=== PATIENT | female | born 1975 | race Caucasian/White ===

== ENCOUNTER 2019-03-15 16:00 | Emergency (ER) | payer MEDICARE, BC, SELFPAY ==
[2019-03-15 16:01] VITALS: BP 173/73; PULSE 92; RESP 20; TEMP 36.8; O2SAT 100
[2019-03-15] MEDS: HYDROmorphone 2 MG/ML VIAL 1 MG IM (16:28)
--- NOTE | 2019-03-15 16:39 | DI.RAD_ITS ---
EXAM: XR ANKLE RT COMPLETE INDICATION: pain, injury. COMPARISON: No exams were available for comparison TECHNIQUE: 2D digital imaging was performed. FINDINGS: There is a fracture seen extending obliquely through the distal fibula. No distal tibial fracture or talar dome defect is seen. There is no evidence of ankle mortise widening. A heel spurring and vas cular calcifications are noted. IMPRESSION: Minimally displaced fracture of the distal fibula.
--- NOTE | 2019-03-15 16:41 | DI.RAD_ITS ---
EXAM: XR TIB/FIB RT INDICATION: pain, injury. COMPARISON: No exams were available for comparison TECHNIQUE: 2D digital imaging was performed. FINDINGS: There is a fracture seen through the distal fibula which is not significantly displaced. No addition al fractures are seen more proximally in the tibia and fibula. The knee is suboptimally profiled on the lateral view. Vascular calcifications are seen. IMPRESSION: Distal fibular fracture.
--- NOTE | 2019-03-15 16:42 | DI.RAD_ITS ---
EXAM: XR FOOT RT COMPLETE INDICATION: pain, injury. COMPARISON: No exams were available for comparison TECHNIQUE: 2D digital imaging was performed. FINDINGS: There is an oblique fracture seen through the distal fibula which is not significantly displaced. No additional fractures are seen in the foot. Vascular calcifications, heel spurs and mild degenerativ e changes are noted. IMPRESSION: Distal fibular fracture.
--- NOTE | 2019-03-15 16:44 | DI.RAD_ITS ---
EXAM: XR KNEE RT 4V AP,LAT,DEMAR,PAT INDICATION: pain, fall. COMPARISON: No exams were available for comparison TECHNIQUE: 2D digital imaging was performed. FINDINGS: No fracture or joint effusion is seen. There no significant degenerative changes. Vascular calcific ations are incidentally noted. IMPRESSION: No acute abnormality.
--- NOTE | 2019-03-15 17:16 | DI.VRAD_ITS ---
PROCEDURE INFORMATION: Exam: XR Right Ankle Exam date and time: 03/15/2019 4:40 PM Age: 44 years old Clinical indication: Pain; Ankle; Right TECHNIQUE: Imaging protocol: XR Right ankle. Views: 3 or more views. COMPARISON: No relevant prior studies available. FINDINGS: Bones/joints: The oblique fracture distal right fibula. Plantar calcaneal spur. Normal bone density. Soft tissues: Soft tissue swelling of the ankle. Soft tissue swelling. Vasculature: Vascular calcification. IMPRESSION: Fracture distal fibula. Dictated and Authenticated by: Sri Green MD. Ordering:LISA Oneil MD
--- NOTE | 2019-03-15 17:17 | DI.VRAD_ITS ---
PROCEDURE INFORMATION: Exam: XR Right Foot Complete Exam date and time: 03/15/2019 4:43 PM Age: 44 years old Clinical indication: Pain; Ankle; Right TECHNIQUE: Imaging protocol: XR Right foot. Views: 3 or more views. COMPARISON: CR XR ANKLE RT COMPLETE 15/03/2019 16:39 FINDINGS: Bones/joints: Plantar calcaneal spur. Fracture distal fibula. Soft tissues: Soft tissue swelling of the foot and ankle. Vasculature: Vascular calcification. IMPRESSION: Fracture distal fibula. Dictated and Authenticated by: Sri Green MD. Ordering:LISA Oneil MD
--- NOTE | 2019-03-15 17:18 | DI.VRAD_ITS ---
PROCEDURE INFORMATION: Exam: XR Right Tibia and Fibula Exam date and time: 03/15/2019 4:43 PM Age: 44 years old Clinical indication: Pain; Ankle; Right TECHNIQUE: Imaging protocol: XR Right tibia and fibula. Views: 2 views. COMPARISON: No relevant prior studies available. FINDINGS: Bones/joints: Normal bone mineralization. Distal fibula fracture. Soft tissues: Soft tissue swelling of the ankle. Vasculature: Vascular calcification. IMPRESSION: Distal fibula fracture. Atherosclerotic disease. Dictated and Authenticated by: Sri Green MD. Ordering:LISA Oneil MD
--- NOTE | 2019-03-15 17:21 | DI.VRAD_ITS ---
PROCEDURE INFORMATION: Exam: XR Right Knee Exam date and time: 03/15/2019 4:48 PM Age: 44 years old Clinical indication: Pain; Ankle; Right TECHNIQUE: Imaging protocol: XR Right knee. Views: 4 or more views. COMPARISON: CR XR TIB/FIB RT 15/03/2019 16:41 FINDINGS: Bones/joints: Normal bone mineralization. No fracture or dislocation. Soft tissues: Unremarkable. Vasculature: Vascular calcification. IMPRESSION: No evidence for acute bony injury. If clinical symptoms persist recommend followup film in 7-10 days. Dictated and Authenticated by: Sri Green MD. Ordering:LISA Oneil MD
--- NOTE | 2019-03-15 21:25 | W.ED.GENAD ---
Discharge Plan Disposition Patient Disposition: HOME Condition: Good Discharge Details Chief Complaint: Orthopedic Clinical Impression: Fibula fracture Primary Care Provider: Matty Ridley ED Provider: Clarice Bills Discharge Instructions Instructions: Leg Fracture (ED) Additional Instructions: Rest. Activities as tolerated. Do not bear weight on your leg, keep splint dry, clean and intact, use crutches. Elevate injury to prevent swelling. Ice to the area of discomfort for 15 min. 3-5 times daily. Tylenol every 6 hours for soreness if needed over the counter for comfort. Followup with orthopedic doctor as discussed Tuesday, call tomorrow for appointment. Return for any worsening or concerns sooner if needed. Referrals: Gilbert Rodriguez MD [ [facility] STAFF PHYSICIAN] - Discharge Data Discharge Date/Time-TO BE ENTERED AT DEPARTURE: 03/15/19 18:35 Medical Decision Making 44-year-old patient presenting for a right knee and ankle injury after slipping on the ice. Patient denies any other focal concerns. Patient has a benign exam otherwise. Patient has notable right knee pain, ramos pain and ankle pain both medially and laterally noted on exam. No obvious deformity present although mild swelling is present in the ankle. Distal neurovascularly intact. X-rays obtained. Patient did receive fentanyl in route via EMS yet continues to complain of severe pain. Additional dose of Dilaudid 1 mg IM was provided. Patient does have a complicated medical history specifically she is a dialysis patient with a cardiac history. She has a fistula in place in left arm. She receives dialysis Tuesday, Tuesday, Tuesday, Tuesday. Patient denies any specific medical concerns or complaints at this time only complaining of trip and fall with associated knee and ankle pain. No open wounds noted. X-rays obtained which reveal a distal fibula fracture. Spoke with orthopedics regarding patient's fracture who recommends a posterior splint, nonweightbearing until able to do stress views in the office on Tuesday. Patient has her own crutches. Posterior splint placed. Given patient's medical history recommended Tylenol for her pain management which she agrees with. Khadar encouraged. The patient was stable and requested discharge. Prior to discharge, my usual and customary return precautions were reviewed with the patient - this included follow-up instructions and reasons to return to the Emergency Department if conditions worsens, does not improve as expected, or other new concerns arise. HPI General Date/Time Provider Initiated Documentation: 03/15/19 16:05. HPI Narrative: 44-year-old patient with complicated medical history presents after slipping on the ice outside and injuring her knee and right ankle. Patient reports she slipped, knee folded onto her and she felt a crack in her ankle. Patient primarily complaining of right ankle pain at this time. Patient reports no associated numbness, tingling or weakness, difficulty ambulating due to pain. Patient denies striking head neck or back. Patient denies any other sites of pain or concerns at this time. No open wounds. Related Data Allergies Allergy/AdvReac Type Severity Reaction Status Date / Time lisinopril Allergy Intermediate Nausea Unverified 03/15/19 16:10 General Stated Complaint: Orthopedic INDIRA: 2 Review of Systems All systems reviewed & are unremarkable except as noted in HPI and below ENT Ears, Nose, Mouth, and Throat: Denies neck pain Musculoskeletal Musculoskeletal: Denies back pain, Denies deformity, Reports joint swelling, Reports limited range of motion, Denies neck pain, Denies numbness and Denies tingling Integumentary/Breasts Skin/Breast: Denies wounds Neurologic Neurologic: Denies numbness and Denies tingling [facility] Social History Smoking/Tobacco Use Status: Never Alcohol Intake: never Drug use: Never Substance use type: does not use Do you feel safe at home: Yes Do you feel safe in your relationship?: Yes Exam Narrative Exam Narrative: CONST: Healthy appearing patient, in no acute distress. Well hydrated. Alert and oriented. NECK: Normal visual inspection. FROM. Trachea midline. No Midline tenderness. CHEST: Normal insepection of the chest. No pain with palpation of chest RESP: Normal respiratory effort. Speaking full sentences. No cough. No audible wheezing. No retractions. Presents clear, full and equal bilaterally. CARDIO: No JVD. No murmurs, regular rate and rhythm MUSCULOSKELETAL: No obvious upper extremity injury. Right leg with straight leg raise intact, no femur pain with palpation, right knee pain with palpation noted anteriorly, mild ramos pain with palpation. Moderate medial and lateral malleolus tenderness of the ankle. Mild dorsal foot pain with palpation. Pulses intact. No open wounds. Sensation intact. No notable abnormalities to the left leg. SKIN: Normal. Dry. No rashes. NEURO: Alert and awake. Speech clear. Course Vital Signs Vital signs: Vital Signs Temperature 36.8 C 03/15/19 16:01 Pulse 92 H 03/15/19 16:01 Respiratory Rate 20 03/15/19 16:01 Blood Pressure 173/73 H 03/15/19 16:01 Pulse Oximetry 100 03/15/19 16:01 Temperature 36.8 C 03/15/19 16:01 Temperature Source Skin 03/15/19 16:01 Pulse 92 H 03/15/19 16:01 Respiratory Rate 03/15/19 16:01 Respiratory Effort Non-Labored 03/15/19 16:08 Blood Pressure 173/73 H 03/15/19 16:01 Pulse Oximetry 100 03/15/19 16:01 Oxygen Delivery Method Room Air 03/15/19 16:01 Oxygen Flow Rate 0 03/15/19 16:01 Pain Level 4 03/15/19 18:45 Procedures Orthopedic Splinting/Casting Injury #1: Side: right Lower Extremity Injury Location: ankle Lower Extremity Immobilizer: posterior splint
== END 2019-03-15 18:35 | disposition home or self-care (01) ==
LOC: ER 19:26
PROVIDERS: Emergency Provider Physician Assistant; PCP Nurse Practitioner
DX: M79.604 Pain in right leg (principal); M25.561 Pain in right knee; S82.431A Displaced oblique fracture of shaft of right fibula, initial encounter for closed fracture; W00.0XXA Fall on same level due to ice and snow, initial encounter; N18.6 End stage renal disease; Z99.2 Dependence on renal dialysis
CPT/HCPCS: 27786; 96372; 99284; 73564; 73590; 73610; 73630; 99282

== ENCOUNTER 2019-03-20 10:52 | Outpatient (CLI) | payer MEDICARE, BC, SELFPAY ==
--- NOTE | 2019-03-20 11:01 | DI.RAD_ITS ---
EXAM: XR ANKLE RT 2V CLINICAL HISTORY: f/u of right distal fibula fracture TECHNIQUE: COMPARISON: XR ANKLE RT COMPLETE from 03/15/2019 FINDINGS: Single view was obtained and shows previously noted fracture of distal fibula with no gross interval change in alignment of the fracture fragments comparison with examination of March 15. This was a stress view and there is question of slightly increased widening of the tibiofibular joint in comparison with the previous exam which was obtained without stress. IMPRESSION:
== END 2019-03-20 11:12 ==
PROVIDERS: PCP Nurse Practitioner; Referring Provider Nurse Practitioner; Visit Provider Student in an Organized Health Care Education/Training Program
DX: S82.831A Other fracture of upper and lower end of right fibula, initial encounter for closed fracture; W00.0XXA Fall on same level due to ice and snow, initial encounter; E11.22 Type 2 diabetes mellitus with diabetic chronic kidney disease; N18.6 End stage renal disease; Z99.2 Dependence on renal dialysis; I11.0 Hypertensive heart disease with heart failure; I50.9 Heart failure, unspecified
CPT/HCPCS: 99203; 99214; L4361; 73600

== ENCOUNTER 2019-04-18 12:00 | Outpatient (CLI) | payer MEDICARE, BC, SELFPAY ==
--- NOTE | 2019-04-18 10:00 | DI.RAD_ITS ---
EXAM: XR ANKLE RT COMPLETE INDICATION: Follow up. COMPARISON: XR ANKLE RT 2V from 03/20/2019 TECHNIQUE: 2D digital imaging was performed. FINDINGS: There has been no change in alignment of the distal right fibular fracture. Callus formation has dev eloped about the fracture.
== END 2019-04-18 12:20 ==
PROVIDERS: PCP Nurse Practitioner; Referring Provider Nurse Practitioner; Visit Provider Student in an Organized Health Care Education/Training Program
DX: S82.831D Other fracture of upper and lower end of right fibula, subsequent encounter for closed fracture with routine healing; W00.0XXD Fall on same level due to ice and snow, subsequent encounter
CPT/HCPCS: 99213; 73610

== ENCOUNTER 2022-01-22 20:50 | Emergency (ER) | payer MEDICARE, BC, SELFPAY ==
[2022-01-22 20:47] VITALS: BP 160/72; PULSE 93; RESP 16; TEMP 37.1; O2SAT 97
--- NOTE | 2022-01-22 21:30 | ED.GENADUL_ITS ---
Discharge Plan Disposition Patient Disposition: Home Condition: Stable Discharge Details Clinical Impression: Hemorrhage of arteriovenous fistula Primary Care Provider: Matty Ridley ED Provider: Juanito Molina Home Meds and New Rx's Prescriptions: Continued clonazepam 0.25 mg tablet,disintegrating 0.25 mg PO DAILY trazodone 50 mg tablet 50 mg PO DAILY Label Comments: TAKE 1 TABLET BY MOUTH AT BEDTIME NEEDED FOR SLEEP amlodipine 10 mg tablet 10 mg PO DAILY Label Comments: TAKE ONE TABLET BY MOUTH ONCE DAILY carvedilol 12.5 mg tablet 12.5 mg PO BID Label Comments: TAKE ONE TABLET BY MOUTH TWICE DAILY Discharge Instructions Additional Instructions: Please keep dressing intact. Please follow-up with nephrology. Dr. Calzada is net application support specialist and recommends contacting him at [facility] tomorrow at 9am. [facility] nephrology will be arranging for vascular surgery followup for fistula evaluation and suture removal. If you develop recurrent bleeding, apply direct pressure to control bleeding and seek emergent care. Return to the emergency department immediately for any worsening or new concerning symptoms. Referrals: Ervin Calzada [ [facility] STAFF PHYSICIAN] - Medical Decision Making 2135 -- 46-year-old female with history of end-stage renal disease on hemodialysis Tuesday, has mature left upper extremity AV fistula its been functional for the past 4 years, now with uncontrolled bleeding from wound over fistula and has not improved with direct pressure since prior to arrival. Unable to control bleeding with pressure dressing. Patient provided informed consent to proceed with suture. [id number] stitch was placed and hemostasis achieved. Pressure dressing applied. No complications. I will consult [facility] nephrology. 2199 -- I spoke with Dr. Calzada, net application support specialist print finishing worker at [facility], I discussed ED presentation and course. He feels dialysis will likely be safe tomorrow but offered that if patient concerned, she can go to [facility] to have RN assess fistula site. He will arrange for outpatient followup with vascular surgery this week for fistula evaluation and suture removal. Discharge instructions reviewed with the patient and questions were addressed. Sign Out No HPI General Mode of arrival: ambulatory . Date/Time Provider Initiated Documentation: 01/22/22 21:02 . Limitations to Documentation: no limitations . Information obtained by: patient . HPI Narrative: 46-year-old female end-stage renal disease on hemodialysis with mature fistula left upper extremity presents with bleeding physical. Patient notes after dialysis on Tuesday she had some subtle bleeding pressure dressing was removed tonight and had spurting blood. Bleeding was severe. A tourniquet was applied to apply direct pressure over the bleeding source which did control it. No associated symptoms. Related Data Home Medications Medication Instructions Recorded Confirmed clonazepam 0.25 mg disintegrating 0.25 mg PO DAILY 03/20/19 01/22/22 tablet amlodipine 10 mg tablet 10 mg PO DAILY 01/22/22 01/22/22 carvedilol 12.5 mg tablet 12.5 mg PO BID 01/22/22 01/22/22 trazodone 50 mg tablet 50 mg PO DAILY 01/22/22 01/22/22 Allergies Allergy/AdvReac Type Severity Reaction Status Date / Time lisinopril Allergy Intermediate Nausea Unverified 01/22/22 20:54 quinapril [From Accupril] Allergy Unknown Unverified 01/22/22 20:54 General Stated Complaint: Vascular INDIRA: 3 Review of Systems Cardiovascular Cardiovascular: Reports as per HPI Integumentary/Breasts Skin/Breast: Reports as per HPI PFS All Active Problems (Updated 01/22/22 @ 22:05 by Juanito Molina MD) Hemorrhage of arteriovenous fistula (Acute) No-show for appointment (Acute) Closed fracture of right distal fibula (Acute 03/15/19) Medical History Anxiety PT reported Depression PT reported Diabetes PT reported Gout PT reported Heart attack PT reported High blood pressure PT reported History of myocardial infarction Pt reported Kidney infection PT reported Urinary tract infection PT reported Social History Smoking/Tobacco Use Status: Never Smoking risk assessment performed?: Yes Alcohol Intake: never Drug use: Never Substance use type: does not use Current gender identity: female Do you feel safe at home: Yes Do you feel safe in your relationship?: Yes Exam Const General: cooperative HENMT Mouth: moist mucous membranes Cardio Rate: regular rate and not tachycardic Rhythm: regular rhythm Skin General skin exam: no rashes or lesions noted Neuro General: patient alert, patient awake and tone normal Extrem General: no edema Left upper extremity: shoulder/upper arm (3mm wound over fistula with high- pressure arterial outflow) Course Vital Signs Vital signs: Vital Signs Temperature 37.1 C 01/22/22 20:47 Pulse 93 H 01/22/22 20:47 Respiratory Rate 16 01/22/22 20:47 Blood Pressure 160/72 H 01/22/22 20:47 Pulse Oximetry 97 01/22/22 20:47 Temperature 37.1 C 01/22/22 20:47 Temperature Source Temporal Artery Scan 01/22/22 20:47 Pulse 93 H 01/22/22 20:47 Respiratory Rate 16 01/22/22 20:47 Respiratory Effort 01/22/22 20:47 Blood Pressure 160/72 H 01/22/22 20:47 Blood Pressure Position Sitting 01/22/22 20:47 Pulse Oximetry 97 01/22/22 20:47 Oxygen Delivery Method Room Air 01/22/22 20:47 Oxygen Flow Rate 0 01/22/22 20:47 Pain Level 0 01/22/22 20:47
[2022-01-22 22:20] VITALS: BP 149/66; PULSE 82; RESP 16; TEMP 37.1; O2SAT 98
== END 2022-01-22 22:23 | disposition home or self-care (01) ==
PROVIDERS: Emergency Provider Student in an Organized Health Care Education/Training Program; PCP Nurse Practitioner
DX: T82.838A Hemorrhage due to vascular prosthetic devices, implants and grafts, initial encounter (principal); N18.6 End stage renal disease
CPT/HCPCS: 99283

== ENCOUNTER 2023-04-04 18:55 | Emergency (ER) | payer MEDICARE, BC, SELFPAY ==
[2023-04-04 18:59] VITALS: BP 220/93; PULSE 92; RESP 24; TEMP 36.9; O2SAT 100
--- NOTE | 2023-04-04 19:45 | DI.CT_ITS ---
Exam(s) CT ABDOMEN PELVIS W EXAM: CT ABDOMEN PELVIS W CLINICAL HISTORY: RLQ pain, ?ovarian pathology. TECHNIQUE: Imaging Protocol: Axial computed tomography images with coronal and sagittal reformatted images were created and reviewed CONTRAST MATERIAL: Intravenous: Omnipaque 350 Contrast volume:100 ml Oral: no COMPARISON: No exams were available for comparison FINDINGS: ABDOMEN and PELVIS: Lung Bases: No acute findings. Heart is dilated. Liver: Normal density. No measurable mass. Gallbladder and biliary tract: No radiodense calculus or dilation. Pancreas: Normal density. No abnormal calcifications or inflammatory process. No evidence of mass. Spleen: Normal. Kidneys: Kidneys shrunken bilaterally. Vascular calcifications. Es. No obstructive uropathy. No anthony spicious masses seen. Adrenal glands: No masses seen. Vasculature: Abdominal aorta non-dilated. Severe atherosclerotic changes. Soft tissues: Electronic device implanted within left lower chest soft tissues. Bladder: Empty. Bowel: No obstruction. No bowel wall thickening. Appendix not seen.. Diverticulosis. No evidence of diverticulitis. Peritoneal cavity: No ascites. No focal collection or mesenteric inflammatory response. Bones: Unremarkable for age. Reproductive organs: Cystic lesion of the left ovary measuring 8.7 x 6.5 by 8.5 cm there are multiple septations as well as some nodular wall thickening. The right ovary to shows 2 smaller cysts, measu ring 3.2 and 3 cm. Uterus retroverted. Lymph nodes: Unremarkable. IMPRESSION:: Large complex cystic lesion of the left ovary. Findings suspicious for cystic neoplasm . 2 smaller cysts on the right ovary. Gynecologic consult recommended. RADIATION DOSE DELIVERED: 737.1mGy.cm Total DLP DATA REPOSITORY: All CT scans at this facility are submitted to the National Radiology Data Registry (NRDR) Dose Index Registry (DIR) with the [employer] ([employer]). RADIATION OPTIMIZATION: All CT scans at this facility use at least one of these dose optimization te chniques: automated exposure control; mA and/or kV adjustment per patient size (includes targeted exa ms where dose is matched to clinical indication); or iterative reconstruction.
--- NOTE | 2023-04-04 19:45 | ED.GENADUL_ITS ---
HPI General Date/Time Provider Initiated Documentation: 04/04/23 19:02 . HPI Narrative: 48 year-old female presents to ED today by POV/ambulating with a chief complaint of RLQ abdominal pain, sudden and severe with onset around 1400 today. Quality described as sharp stabbing and cramping, no radiation to nausea/vomiting, fever, vaginal bleeding, discharge- patient does not make urine and does home- dialysis 4x/week, patient had a known cyst on L lower abdomen removed in remote past. Severity is described as 12/07. Palliating factors include nothing specific helping. Provoking factors include nothing specific. Patient not anticoagulated. Related Data Home Medications Medication Instructions Recorded Confirmed trazodone 50 mg tablet 50 mg PO DAILY 01/22/22 04/04/23 cholecalciferol (vitamin D3) 25 04/04/23 mcg (1,000 unit) tablet sevelamer carbonate 800 mg tablet mg 04/04/23 Allergies Allergy/AdvReac Type Severity Reaction Status Date / Time lisinopril Allergy Intermediate Nausea Unverified 04/04/23 19:02 quinapril [From Accupril] Allergy Unknown Unverified 04/04/23 19:02 General Stated Complaint: Abd Prob INDIRA: 3 Review of Systems All systems reviewed & are unremarkable except as noted in HPI and below Exam Narrative Exam Narrative: GENERAL APPEARANCE: Well-nourished, non-toxic, awake and alert, atraumatic, no acute distress. SKIN: Warm, pink, dry, intact, without rashes/lesions/ulcerations. HEAD: Normocephalic, atraumatic, normal hair distribution for gender/age. EYES: Pupils PERRLA, EOMs intact without nystagmus, normal conjunctiva, no exudates on lids/lashes. ENT: Nares patent, no circumoral cyanosis, no facial swelling NECK: Supple, trachea midline, painless cervical ROM. LUNGS/CHEST: Lungs CTA bilaterally- no rhonchi/rales/wheezes diffusely non- labored respirations, normal A/P diameter, symmetrical expansion, no chest wall deformity HEART (CV/PV): Regular rate and rhythm without murmur, no peripheral edema, no JVD. ABDOMEN: Soft, non-distended, no guarding, RLQ abdominal tenderness, rebound tenderness, no Rovsing's, R CVA TTpercussion. MSK: Normal ROM, no swelling/deformity to bilateral UEs or LEs, moving all extremities without weakness, no cyanosis, spine midline without tenderness, normal curvature. NEURO: Mental Status AAOx4 - alert to person, place, time, events No facial droop, no forehead involvement. Motor: No focal weakness - strength 5/5 in bilateral UEs and LEs, proximal and distal, symmetric. Sensory: sensation intact to light touch globally. Gait normal: patient ambulated without ataxia into ED room. PSYCH: euthymic, cooperative, pleasant, appropriate speech Course Vital Signs Vital signs: Vital Signs Temperature 36.9 C 04/04/23 18:59 Pulse 92 H 04/04/23 18:59 Respiratory Rate 24 04/04/23 18:59 Blood Pressure 220/93 H 04/04/23 18:59 Pulse Oximetry 100 04/04/23 18:59 Temperature 36.9 C 04/04/23 18:59 Temperature Source Temporal Artery Scan 04/04/23 18:59 Pulse 92 H 04/04/23 18:59 Respiratory Rate 24 04/04/23 18:59 Respiratory Effort Normal 04/04/23 19:23 Blood Pressure 220/93 H 04/04/23 18:59 Blood Pressure Position Sitting 04/04/23 18:59 Pulse Oximetry 100 04/04/23 18:59 Oxygen Delivery Method Room Air 04/04/23 18:59 Oxygen Flow Rate 0 04/04/23 18:59 Pain Level 9 04/04/23 18:59 Medical Decision Making This dictation utilizes [id number] dictation software and may contain unedited grammatical errors. 48 y/o F presents to ED today with a chief complaint of RLQ abdominal tenderness, onset today around 1400- patient states severe pain, denies nausea/vomiting, does not make urine and does home dialysis 4x/week- has had L lower abdominal / ovarian cyst removed in the past. Patient denies fever. Patients' medical history: UTI, history of kidney infection, acute renal failure not on transplant list, home dialysis patient- has had their appendix out. Family and social history: lives at home with . Pertinent exam findings / vital signs include RLQ Abdominal ttp with rebound tenderness, no Rovsing's. Differential / pathologies of concern include TOA, SBO, Pyelonephritis, SBO, Perforated Viscous, lower likihood of bowel ischemia. Diagnostic studies of: -CBC, CMP, Lipase, Lactate, Procalcitonin, Blood Cx's, CT ABD/Pelvis w Contrast. -CBC no leukocytosis -CMP shows anion gap of 17, SCr of 10, BUN elevated- chronic -Lipase elevated without biliary pathology seen on CT -Lactate 2.3, elevated procalcitonin -BNP elevated in the setting of ARF -CT shows complex thickened septated 5cm R adnexal mass- 8.3cm on L without thickening, concern TOA or other pathology- afterhours for U/S. Interventions of: -IV Tylenol, IV Hydromorphone. Consulted with OBGYN Dr. Araujo who will see the patient for possible admission vs transfer decision due to complexity with home dialysis ED Course/Assessment/Plan: 48-year-old female presents with severe right lower abdominal pain that had a sudden onset around 2 PM today, CT shows a thickened septated complex possible cystic neoplasm or right adnexal mass, I am concerned for possible TOA, it is after hours for ultrasound to better characterize this, the patient has no leukocytosis but does have a mild elevation of lactate likely in the setting of acute renal failure and possible poor p.o. intake of hydration, I did take blood cultures. Lipase is elevated without pathology seen on CT. I consulted with [facility] [employer] Dr. Araujo for likely admission versus [place] [facility] [place] the patient's baseline complexity though she does have the ability to dialyze at home without issue. Deferring antibiotic decision to in-patient providers with patients renal dosing, pending cultures, and no leukocytosis. Disposition of Adnexal Cyst. Patient verbalized understanding of the plan and return to ED criteria and engaged in shared decision making. Medical Records Medical records reviewed: Yes I reviewed the patient's medical records. Imaging Data Radiologic Study: Imaging: CT Scan Radiologist's impression: Exam: CT Abdomen And Pelvis With Contrast Exam date and time: 04/04/2023 9:07 PM Age: 48 years old Clinical indication: Other: Rlq pain, ? ovarian pathology; Additional info: Bad labs, PT states she's having dialysis in less than 24 hours. TECHNIQUE: Imaging protocol: Computed tomography of the abdomen and pelvis with contrast. Contrast material: OMNIPAQUE 350; Contrast volume: 90 ml; Contrast route: INTRAVENOUS (IV); COMPARISON: No relevant prior studies available. FINDINGS: Tubes, catheters and devices: Stimulator device implanted in the left flank. Lungs: Visualized lung bases are clear. Liver: Normal. No mass or intrahepatic biliary ductal dilatation. Gallbladder and bile ducts: Normal. No calcified stones. No ductal dilation. Pancreas: Normal. No mass or ductal dilation. Spleen: Normal. No splenomegaly. Adrenal glands: Normal. No mass. Kidneys and ureters: The kidneys are markedly atrophic and nonfunctional. Stomach and bowel: Small bowel is normal. Proximal colon is normal. There are numerous diverticula in the distal colon but without signs of acute diverticulitis. Appendix: No evidence of appendicitis. Intraperitoneal space: Unremarkable. No free air. No significant fluid collection. Vasculature: Mild aortic atherosclerosis. Dilated enhancing vessels in the adnexal region bilaterally. Lymph nodes: No enlarged retroperitoneal or mesenteric lymph nodes. Urinary bladder: No mass or wall thickening. Reproductive: The uterus is slightly retroflexed. In the left adnexa there is a large 8.3 cm septated cyst. In the right adnexa there is a similar but smaller 5 cm septated cyst. No solid mass. Bones/joints: Unremarkable. No acute fracture. No lytic lesion. Soft tissues: Unremarkable. IMPRESSION: Bilateral septated cystic adnexal masses larger on the left. There is some thickening of the septations especially on the right and the possibility of a cystic neoplasm cannot be excluded. Ultrasound evaluation may be helpful. Dictated and Authenticated by: Deep Garg MD. Ordering:LUPILLO Dick MD Lab Data Lab results reviewed: Yes I reviewed the patient's lab results. Labs: 04/04/23 20:42 Blood Blood Culture - Pending 04/04/23 20:30 Blood Blood Culture - Pending Laboratory Tests Range/Units 04/04/23 19:57 WBC (4.4-10.8) 10^3/uL 8.55 RBC (3.93-5.22) 10^6/uL 3.36 L Hgb (11.2-15.7) g/dL 11.0 L Hct (36.0-46.0) % 30.1 L MCV (80-95) fL 90 MCH (27.0-33.0) pg 32.7 MCHC (32.0-36.0) % 36.5 H RDW (11.7-14.6) % 13.2 Plt Count (130-400) 10^3/uL 265 MPV (8.0-11.0) fL 10.5 Immature Gran % 1.5 Neutrophils % 73.9 Lymphocytes % 14.5 Monocytes % 7.3 Eosinophils % 2.0 Basophils % 0.8 Nucleated RBC % (0.0-0.3) % 0.0 Absolute Neutrophils (1.2-6.7) 10^3/uL 6.32 Absolute Lymphocytes (1.2-3.4) 10^3/uL 1.24 Absolute Monocytes (0.1-0.8) 10^3/uL 0.62 Absolute Eosinophils (0.0-0.7) 10^3/uL 0.17 Absolute Basophils (0.0-0.2) 10^3/uL 0.07 ESR (0-20) mm/hr 21 H VBG Lactate (0.6-1.4) mmol/L 2.3 H* Sodium (136-145) mmol/L 135 L Potassium (3.5-5.1) mmol/L 4.2 Chloride (98-107) mmol/L 94 L Carbon Dioxide (21.0-32.0) mmol/L 23.8 Anion Gap (3-11) mmol/L 17.2 H BUN (7-18) mg/dL 82 H* Creatinine (0.55-1.02) mg/dL 10.4 H* Est GFR (CKD-EPI 2020) (mL/min/1.73m2) 4.21 Glucose (74-106) mg/dL 165 H Calcium (8.5-10.1) mg/dL 9.4 Magnesium (1.8-2.4) mg/dL 2.1 Total Bilirubin (0.2-1.0) mg/dL 0.4 AST (15-37) U/L 5 L ALT (14-59) U/L 16 Alkaline Phosphatase (46-116) U/L 142 H Creatine Kinase (26-192) U/L 34 Troponin I (< or =60) ng/L < 50 C-Reactive Protein (<or=0.5) mg/dL 3.47 NT-Pro-B Natriuret Pep (<300) pg/mL 1705 H Total Protein (6.4-8.2) g/dL 8.2 Albumin (3.4-5.0) g/dL 3.8 Lipase (16-77) U/L > 375 H Procalcitonin ng/mL 0.4 Quality:SDOH Health Related Social Needs: No Data to Display PFSH All Active Problems (Updated 04/04/23 @ 22:23 by JULITA Gipson) Adnexal cyst (Acute) No-show for appointment (Acute) Closed fracture of right distal fibula (Acute 03/15/19) Medical History Anxiety PT reported Depression PT reported Diabetes PT reported Gout PT reported Heart attack PT reported High blood pressure PT reported History of myocardial infarction Pt reported Kidney infection PT reported Urinary tract infection PT reported Social History Smoking/Tobacco Use Status: Never Smoking risk assessment performed?: Yes Alcohol Intake: never Drug use: Never Substance use type: does not use Current gender identity: female Do you feel safe at home: Yes Do you feel safe in your relationship?: Yes Discharge Plan Discharge Details Chief Complaint: Abd Prob Clinical Impression: Adnexal cyst Primary Care Provider: Deep Leal ED Provider: Kapil De Santiago Home Meds and New Rx's Prescriptions: No Action trazodone 50 mg tablet 50 mg PO DAILY Patient Comments: TAKE 1 TABLET BY MOUTH AT BEDTIME NEEDED FOR SLEEP cholecalciferol (vitamin D3) 25 mcg (1,000 unit) tablet Patient Comments: TAKE 1 TABLET BY MOUTH EVERY DAY sevelamer carbonate 800 mg tablet Patient Comments: TAKE 3 TABLETS BY MOUTH THREE TIMES DAILY WITH MEALS
[2023-04-04 20:07] LABS: Abs Immature Grans 0.13 10^3/uL (0.0-0.06); Absolute Basophil Count 0.07 10^3/uL (0.0-0.2); Absolute Eosinophil Count 0.17 10^3/uL (0.0-0.7); Absolute Lymphocyte Count 1.24 10^3/uL (1.2-3.4); Absolute Monocyte Count 0.62 10^3/uL (0.1-0.8); Absolute Neutrophil Count 6.32 10^3/uL (1.2-6.7); Basophils % 0.8; HCT 30.1 % (36.0-46.0); Immature Grans % 1.5; Lactate 2.3 mmol/L (0.6-1.4); Lymphocytes % 14.5; MCH 32.7 pg (27.0-33.0); MCHC 36.5 % (32.0-36.0); MCV 90 fL (80-95); MPV 10.5 fL (8.0-11.0); Monocytes % 7.3; Neutrophils % 73.9; Platelet Count 265 10^3/uL (130-400); RBC 3.36 10^6/uL (3.93-5.22); RDW 13.2 % (11.7-14.6); RDW-SD 43.2 fL; WBC 8.55 10^3/uL (4.4-10.8)
[2023-04-04 20:09] LABS: ESR 21 mm/hr (0-20)
[2023-04-04] MEDS: ACETAMINOPHEN 1,000 MG/100 ML BTL 400 MG IVPB (20:26)
[2023-04-04] MEDS: HYDROmorphone 2 MG/ML SYR 1 MG IVP (20:26)
[2023-04-04 20:29] LABS: Albumin 3.8 g/dL (3.4-5.0); Alkaline Phosphatase 142 U/L (46-116); Anion Gap 17.2 mmol/L (3-11); Bilirubin, Total 0.4 mg/dL (0.2-1.0); C-Reactive Protein 3.47 mg/dL (<or=0.5); CO2 23.8 mmol/L (21.0-32.0); Calcium 9.4 mg/dL (8.5-10.1); Chloride 94 mmol/L (98-107); Creatine Kinase 34 U/L (26-192); Estimated GFR 4.21 (mL/min/1.73m2); Glucose 165 mg/dL (74-106); Magnesium 2.1 mg/dL (1.8-2.4); NT-proBNP 1705 pg/mL (<300); Potassium 4.2 mmol/L (3.5-5.1); Sodium 135 mmol/L (136-145); Total Protein 8.2 g/dL (6.4-8.2); Troponin I < 50 ng/L (< or =60)
[2023-04-04 20:30] LABS: Lipase > 375 U/L (16-77)
[2023-04-04 20:32] LABS: BUN 82 mg/dL (7-18); CREATININE 10.4 mg/dL (0.55-1.02)
[2023-04-04 20:43] LABS: Procalcitonin 0.4 ng/mL
[2023-04-04] MEDS: Normal Saline Flush 10 ML SYR IVP (21:01)
[2023-04-04] MEDS: Normal Saline - Diluent 50 ML VIAL IJ (21:15)
[2023-04-04] MEDS: Omnipaque 350 MG/ML 100 ML BTL 90 ML IJ (21:16)
[2023-04-04 21:41] LABS: ALT 16 U/L (14-59)
--- NOTE | 2023-04-04 21:56 | DI.VRAD_ITS ---
PROCEDURE INFORMATION: Exam: CT Abdomen And Pelvis With Contrast Exam date and time: 04/04/2023 9:07 PM Age: 48 years old Clinical indication: Other: Rlq pain, ? ovarian pathology; Additional info: Bad labs, PT states she's having dialysis in less than 24 hours. TECHNIQUE: Imaging protocol: Computed tomography of the abdomen and pelvis with contrast. Contrast material: OMNIPAQUE 350; Contrast volume: 90 ml; Contrast route: INTRAVENOUS (IV); COMPARISON: No relevant prior studies available. FINDINGS: Tubes, catheters and devices: Stimulator device implanted in the left flank. Lungs: Visualized lung bases are clear. Liver: Normal. No mass or intrahepatic biliary ductal dilatation. Gallbladder and bile ducts: Normal. No calcified stones. No ductal dilation. Pancreas: Normal. No mass or ductal dilation. Spleen: Normal. No splenomegaly. Adrenal glands: Normal. No mass. Kidneys and ureters: The kidneys are markedly atrophic and nonfunctional. Stomach and bowel: Small bowel is normal. Proximal colon is normal. There are numerous diverticula in the distal colon but without signs of acute diverticulitis. Appendix: No evidence of appendicitis. Intraperitoneal space: Unremarkable. No free air. No significant fluid collection. Vasculature: Mild aortic atherosclerosis. Dilated enhancing vessels in the adnexal region bilaterally. Lymph nodes: No enlarged retroperitoneal or mesenteric lymph nodes. Urinary bladder: No mass or wall thickening. Reproductive: The uterus is slightly retroflexed. In the left adnexa there is a large 8.3 cm septated cyst. In the right adnexa there is a similar but smaller 5 cm septated cyst. No solid mass. Bones/joints: Unremarkable. No acute fracture. No lytic lesion. Soft tissues: Unremarkable. IMPRESSION: Bilateral septated cystic adnexal masses larger on the left. There is some thickening of the septations especially on the right and the possibility of a cystic neoplasm cannot be excluded. Ultrasound evaluation may be helpful. Dictated and Authenticated by: Deep Garg MD. Ordering:LUPILLO Dick MD
[2023-04-04 21:57] LABS: AST 5 U/L (15-37)
[2023-04-04] MEDS: HYDROmorphone 2 MG/ML SYR 0.5 MG IVP (23:01)
--- NOTE | 2023-04-05 00:05 | ED.PROG_ITS ---
Date of service: 04/05/23 Time of Service: 00:05 Medical Decision Making Patient was signed out to me by my colleague JULITA Acosta. Please refer to his HPI, physical exam, assessment and plan. At time of signout obstetrics gynecology had already evaluated the patient had high concern for potential tors ion versus mass. [place] the need for admission for emergent ultrasound in the morning as well as potential surgical intervention. Unfortunately per Kapil De Santiago and Dr. Araujo they did have a discussion of this admission with the hospitalist Dr. Chen, and because the patient is a dialysis patient admission was refused. The decision was then made to transfer the patient for further diagnostic evaluation and potential surgical management. [facility] was contacted by Kapil De Santiago and he was told that they are currently unable to accept the patient for transfer. [facility] was contacted by myself and they refused transfer and stated that they were at capacity. [facility] was contacted, and the case was discussed with Dr. King. She recommended that the patient be transferred to the emergency department for ultrasound and further assessment. I spoke with Dr. Rai in the emergency department, he accepted the patient in transfer. I have extensively reviewed the treatment plan with the patient. I have addressed all patient concerns at this time. I have also discussed the plan with the admitting physician and they agree with the current assessment and plan and have agreed to assume responsibility for the patient. All parties demonstrate verbal understanding and agreement with our assessment and plan at this time. The documentation in this chart was dictated using [employer] dictation software. Please excuse any dictation errors. At time of transfer the patient was reassessed and continued to demonstrate No signs of acute respiratory distress requiring intubation, hemodynamic instability requiring pressor support, or rapidly declining mental status. Quality:SDOH Health Related Social Needs: No Data to Display Discharge Plan Disposition Patient Disposition: Transfer-Acute Inpatient Care Specific Acute Inpt Facility: [facility] Discharge Details Chief Complaint: Abd Prob Clinical Impression: Adnexal cyst, Right sided abdominal pain Primary Care Provider: Deep Leal ED Provider: Kapil De Santiago Home Meds and New Rx's Prescriptions: No Action trazodone 50 mg tablet 50 mg PO DAILY Patient Comments: TAKE 1 TABLET BY MOUTH AT BEDTIME NEEDED FOR SLEEP cholecalciferol (vitamin D3) 25 mcg (1,000 unit) tablet Patient Comments: TAKE 1 TABLET BY MOUTH EVERY DAY sevelamer carbonate 800 mg tablet Patient Comments: TAKE 3 TABLETS BY MOUTH THREE TIMES DAILY WITH MEALS
== END 2023-04-05 00:19 | disposition short-term general hospital (02) ==
PROVIDERS: Emergency Provider Physician Assistant; PCP Family Medicine
DX: R10.31 Right lower quadrant pain (principal); N83.8 Other noninflammatory disorders of ovary, fallopian tube and broad ligament; N83.201 Unspecified ovarian cyst, right side; N17.9 Acute kidney failure, unspecified; I12.0 Hypertensive chronic kidney disease with stage 5 chronic kidney disease or end stage renal disease; N18.6 End stage renal disease; Z99.2 Dependence on renal dialysis; E11.22 Type 2 diabetes mellitus with diabetic chronic kidney disease
CPT/HCPCS: 00123; 36415; 80053; 82550; 83690; 84145; 85652; 87040; 96374; 96375; 96376; 99285; 74177; 83605; 83735; 83880; 84484; 85025; 86140; J0131; J1170; J3490

== ENCOUNTER 2024-07-22 11:46 | Emergency (ER) | payer MEDICARE, BC, SELFPAY ==
[2024-07-22] VITALS (23 sets, daily range): BP systolic 112–140; BP diastolic 53–76; PULSE 67–103; RESP 11–24; TEMP 36.8; O2SAT 93–100
--- NOTE | 2024-07-22 11:30 | RT.EKG_ITS ---
APPROVED REPORT Exam: Resting ECG Reason for Exam: weak,dizzy Patient Location: E HR:74 bpm ECG Measurements Heart Rate 74 AXIS HI 183 P 66 QRSd 90 QRS 91 QT 438 T 60 QTc 486 Conclusion Sinus rhythm 74 normal axis nostemi
[2024-07-22] MEDS: Meclizine 25 MG TAB 50 MG PO (12:47)
[2024-07-22 12:53] LABS: Absolute Basophil Count 0.04 10^3/uL (0.0-0.2); Absolute Eosinophil Count 0.09 10^3/uL (0.0-0.7); Absolute Lymphocyte Count 1.26 10^3/uL (1.2-3.4); Absolute Monocyte Count 0.47 10^3/uL (0.1-0.8); Absolute Neutrophil Count 6.71 10^3/uL (1.2-6.7); Basophils % 0.5 %; HCT 33.3 % (36.0-46.0); HGB 11.2 g/dL (11.2-15.7); Immature Grans % 1.2 %; Lymphocytes % 14.5 %; MCH 27.9 pg (27.0-33.0); MCHC 33.6 % (32.0-36.0); MCV 83 fL (80-95); Monocytes % 5.4 %; Neutrophils % 77.4 %; Platelet Count 307 10^3/uL (130-400); RBC 4.01 10^6/uL (3.93-5.22); RDW 15.4 % (11.7-14.6); RDW-SD 46.6 fL; WBC 8.67 10^3/uL (4.4-10.8)
--- NOTE | 2024-07-22 13:03 | ED.GENADUL_ITS ---
Discharge Plan Disposition Patient Disposition: Home Condition: Stable Discharge Details Clinical Impression: Vertigo Primary Care Provider: Deep Leal ED Provider: Dolores Minor Home Meds and New Rx's Prescriptions: New meclizine 25 mg tablet 25 mg PO TID PRN (Reason: dizziness) Qty: 14 0RF No Action cholecalciferol (vitamin D3) 25 mcg (1,000 unit) tablet 25 mcg PO DAILY Patient Comments: TAKE 1 TABLET BY MOUTH EVERY DAY sevelamer carbonate 800 mg tablet 2,400 mg PO AC Patient Comments: TAKE 3 TABLETS BY MOUTH THREE TIMES DAILY WITH MEALS trazodone 100 mg tablet 100 mg PO DAILY carvedilol 12.5 mg tablet 12.5 mg PO DAILY amlodipine 10 mg tablet 10 mg PO DAILY Discharge Instructions Additional Instructions: Symptoms are consistent with vertigo. Please take meclizine as prescribed. You should also increase your water intake. Go to dialysis tomorrow as scheduled. Follow-up with your PCP for any ongoing symptoms or return to the emergency department with any significant concerns. HPI General Date/Time Provider Initiated Documentation: 07/22/24 11:48 . Limitations to Documentation: no limitations . HPI Narrative: 49-year-old female with past medical history of ESRD on dialysis Tuesday. Patient reports that she was singing in [employer] today when she felt dizzy and off balance. She denies any chest pain or shortness of breath. She reports when she lies still her symptoms have resolved, but sitting up and looking to the right does make things worse. She has never had vertigo before. She reports dialysis was done on Tuesday this is a normal session for her. She denies any headache, vision change or speech change during this episode. She reports that she had some water and toast for breakfast prior to going to [employer] and standing in choir. Related Data Home Medications ?Medication ?Instructions ?Recorded ?Confirmed cholecalciferol (vitamin D3) 25 25 mcg PO DAILY 04/04/23 07/22/24 mcg (1,000 unit) tablet sevelamer carbonate 800 mg tablet 2,400 mg PO AC 04/04/23 07/22/24 amlodipine 10 mg tablet 10 mg PO DAILY 07/22/24 07/22/24 carvedilol 12.5 mg tablet 12.5 mg PO DAILY 07/22/24 07/22/24 meclizine 25 mg tablet 25 mg PO TID PRN dizziness #14 tabs 07/22/24 trazodone 100 mg tablet 100 mg PO DAILY 07/22/24 07/22/24 Previous Rx's ?Medication ?Instructions ?Recorded meclizine 25 mg tablet 25 mg PO TID PRN dizziness #14 tabs 07/22/24 Allergies Allergy/AdvReac Type Severity Reaction Status Date / Time egg Allergy Severe Diarrhea Verified 07/22/24 11:55 lisinopril Allergy Intermediate Nausea Unverified 07/22/24 11:55 quinapril (From Accupril) Allergy Unknown cough Unverified 07/22/24 11:55 General Stated Complaint: Dizzy/Sync INDIRA: 3 Exam Narrative Exam Narrative: review of Systems: All systems reviewed & are unremarkable except as noted in H PI and below Well-developed, no acute distress NCAT PERRL, normal conjunctiva nystagmus when looking to the right RRR no murmur Unlabored respiratory effort, CTAB Nondistended abdomen , soft non tender Extremities w/o edema AV fistula with thrill in RUE no focal neurologic deficits Course Vital Signs Vital signs: Vital Signs Temperature 36.8 C 07/22/24 11:53 Pulse 77 07/22/24 11:53 Respiratory Rate 22 07/22/24 11:53 Blood Pressure 140/62 07/22/24 11:53 Pulse Oximetry 100 07/22/24 11:53 Temperature 36.8 C 07/22/24 11:53 Temperature Source Oral 07/22/24 11:53 Pulse 77 07/22/24 11:53 Respiratory Rate 22 07/22/24 11:53 Blood Pressure 140/62 07/22/24 11:53 Blood Pressure Position Sitting 07/22/24 11:53 Pulse Oximetry 100 07/22/24 11:53 Oxygen Delivery Method Room Air 07/22/24 11:53 Oxygen Flow Rate 0 07/22/24 11:53 Pain Level 0 07/22/24 11:53 Lab/Test Results Lab/Test Results: Laboratory Tests Range/Units 07/22/24 12:36 WBC (4.4-10.8) 10^3/uL 8.67 RBC (3.93-5.22) 10^6/uL 4.01 Hgb (11.2-15.7) g/dL 11.2 Hct (36.0-46.0) % 33.3 L MCV (80-95) fL 83 MCH (27.0-33.0) pg 27.9 MCHC (32.0-36.0) % 33.6 RDW (11.7-14.6) % 15.4 H Plt Count (130-400) 10^3/uL 307 MPV (8.0-11.0) fL 10.0 Immature Gran % % 1.2 Neutrophils % % 77.4 Lymphocytes % % 14.5 Monocytes % % 5.4 Eosinophils % % 1.0 Basophils % % 0.5 Nucleated RBC % (0.0-0.3) % 0.0 Absolute Neutrophils (1.2-6.7) 10^3/uL 6.71 H Absolute Lymphocytes (1.2-3.4) 10^3/uL 1.26 Absolute Monocytes (0.1-0.8) 10^3/uL 0.47 Absolute Eosinophils (0.0-0.7) 10^3/uL 0.09 Absolute Basophils (0.0-0.2) 10^3/uL 0.04 Medical Decision Making Emergent evaluation of acute onset dizziness. Initial differential includes vertigo, dysrhythmia, electrolyte derangement. Patient is hemodynamically stable. EKG (reviewed and independently interpreted: Sinus 74 normal axis no STEMI. Patient has no signs of volume overload at this time. Will give oral dose of meclizine, check labs and continue telemetry monitoring. The patient is feeling better after the meclizine. Dizziness has resolved, but she does feel some head pressure now. The lab work was reviewed, no anemia or leukocytosis. Including elevation of BUN and creatinine. Potassium is within normal limits. Her troponin is not elevated. CMP derangement consistent with end-stage renal disease. Symptoms are consistent with vertigo and she has had complete relief of symptoms after the meclizine and Tylenol. She is ambulatory without any unsteadiness. I do not have a suspicion for a central etiology. Patient will be discharged home with prescription for meclizine to take. She has dialysis scheduled for tomorrow and discussed follow-up and return precautions Quality:SDOH Health Related Social Needs: No Data to Display PFSH All Active Problems (Updated 07/22/24 @ 14:22 by Dolores Minor MD) Vertigo (Acute) No-show for appointment (Acute) Closed fracture of right distal fibula (Acute 03/15/19) Medical History Anxiety PT reported Depression PT reported Diabetes PT reported Gout PT reported Heart attack PT reported High blood pressure PT reported History of myocardial infarction Pt reported Kidney infection PT reported Urinary tract infection PT reported Social History Smoking/Tobacco Use Status: Never Smoking risk assessment performed?: Yes Alcohol Intake: never Drug use: Never Substance use type: does not use Current gender identity: female Do you feel safe at home: Yes Do you feel safe in your relationship?: Yes
[2024-07-22 13:07] LABS: ALT 16 U/L (14-59); AST 13 U/L (15-37); Alkaline Phosphatase 128 U/L (46-116); Anion Gap 12.8 mmol/L (3-11); BUN 52 mg/dL (7-18); Bilirubin, Total 0.4 mg/dL (0.2-1.0); CO2 27.2 mmol/L (21.0-32.0); Calcium 10.9 mg/dL (8.5-10.1); Chloride 96 mmol/L (98-107); Estimated GFR 4.28 (mL/min/1.73m2); Glucose 129 mg/dL (74-106); Magnesium 2.4 mg/dL (1.8-2.4); Potassium 4.9 mmol/L (3.5-5.1); Sodium 136 mmol/L (136-145); Total Protein 8.7 g/dL (6.4-8.2); Troponin I 6 ng/L (<or=51)
[2024-07-22 13:08] LABS: CREATININE 10.2 mg/dL (0.55-1.02)
[2024-07-22 13:12] LABS: PTT Activated 26.4 sec (20.6-30.2)
[2024-07-22] MEDS: Acetaminophen 500 MG TAB 1000 MG PO (13:27)
== END 2024-07-22 14:50 | disposition home or self-care (01) ==
PROVIDERS: Emergency Provider Emergency Medicine; PCP Family Medicine
DX: R42 Dizziness and giddiness (principal); I25.2 Old myocardial infarction; I12.0 Hypertensive chronic kidney disease with stage 5 chronic kidney disease or end stage renal disease; N18.6 End stage renal disease; Z99.2 Dependence on renal dialysis
CPT/HCPCS: 80053; 93005; 99284; 83735; 84484; 85025; 85610; 85730; 93010